=== PATIENT | female | born 1945 | race Hispanic/Latino ===

== ENCOUNTER 2020-02-16 00:26 | Inpatient (IN) | payer OTHER ==
[~2020-02-16] VITALS: Ht 149.9 cm; Wt 60.3 kg
[2020-02-16] MEDS ORDERED: ONDANSETRON HCL 4 MG/2 ML VIAL ONE (01:17)
[2020-02-16] MEDS ORDERED: ACETAMINOPHEN EXTRA STRENGTH 500 MG TABLET ONE (01:17)
[2020-02-16 01:36] LABS: BASOPHILS % (AUTO) 0.2 % (0.0-5.0); EOSINOPHILS % (AUTO) 0.5 % (0.0-8.0); HEMATOCRIT 39.2 % (36-48); LYMPHOCYTES % (AUTO) 4.1 % (21.0-51.0); MEAN CORPUSCULAR HGB CONC 34.2 g/dL (32.0-36.0); MEAN CORPUSCULAR VOLUME 87.9 fL (79-99); MONOCYTES % (AUTO) 5.5 % (3.0-13.0); NEUTROPHILS % (AUTO) 89.2 % (40.0-77.0); PLATELET COUNT (AUTO) 204 K/uL (130-400); RED BLOOD CELL COUNT(AUTO) 4.46 MIL/uL (4.00-5.50); RED CELL DISTRIBUTION WIDTH 13.9 % (11.0-15.5)
[2020-02-16 01:55] LABS: CARBON DIOXIDE 25 mmol/L (21-32); CHLORIDE 101 mmol/L (101-111); CREATININE 0.8 mg/dL (0.5-1.5); GLOMERULAR FILTR. RATE CALC 74 mL/min (>60); GLUCOSE,RANDOM 150 mg/dL (70-105); INR 0.92 (0.85-1.15); POTASSIUM 3.3 mmol/L (3.5-5.1); SODIUM SERUM 141 mmol/L (136-145); UREA NITROGEN, BLOOD 10 mg/dL (7-18)
[2020-02-16 02:06] LABS: ALANINE AMINOTRANSFERASE 15 U/L (12-78); ALBUMIN 4.3 g/dL (3.5-5.0); ASPARTATE AMINOTRANSFERASE 21 U/L (10-37); BILIRUBIN,TOTAL 0.6 mg/dL (0.2-1.0); CREATINE KINASE, TOTAL 46 U/L (21-232); MYOGLOBIN 23 ng/mL (10-92); TOTAL PROTEIN, SERUM 8.1 g/dL (6.0-8.3); TROPONIN I < 0.04 ng/mL (0.00-0.06)
[2020-02-16] MEDS ORDERED: LEVOFLOXACIN 500 MG/D5W 100 ML 100 ML ONE (02:13)
[2020-02-16 02:14] LABS: APPEARANCE,URINE Clear (CLEAR); BILIRUBIN,URINE Negative (NEGATIVE); COLOR,URINE Yellow (YELLOW); GLUCOSE, URINE (UA) Negative (NEGATIVE); KETONES,URINE Negative (NEGATIVE); LEUKOCYTE ESTERASE ,URINE Trace (NEGATIVE); NITRATE,URINE Negative (NEGATIVE); OCCULT BLOOD,URINE Negative (NEGATIVE); PH,URINE >=9.0 (5.0-8.0); PROTEIN,URINE Negative (NEGATIVE); UROBILINOGEN,URINE 0.2 mg/dL (0.2-1.0)
[2020-02-16] MEDS ORDERED: POTASSIUM CHLORIDE 20 MEQ ERTAB PO ONE (02:14)
[2020-02-16 02:24] LABS: BACTERIA,URINE Rare /HPF (None Seen); RBC,URINE 0-1 /HPF (0-1)
[2020-02-16] MEDS ORDERED: ACETAMINOPHEN 325 MG TAB PO PRN ×2 (04:45)
[2020-02-16] MEDS ORDERED: ONDANSETRON HCL 4 MG/2 ML VIAL IV PRN (04:45)
[2020-02-16] MEDS ORDERED: HYDRALAZINE HCL 20 MG/ML VIAL IV PRN (04:45)
[2020-02-16] MEDS ORDERED: LACTULOSE 20 GM/30 ML UDCUP PO PRN (04:45)
[2020-02-16 06:00] VITALS: BP 143/66
[2020-02-16] MEDS ORDERED: LOSA50TA64 PO (06:14)
[2020-02-16 07:34] VITALS: BP 144/58
[2020-02-16] MEDS: FAMOTIDINE 20MG TAB 20 MG TAB PO SCH ×2 (09:48→20:32)
[2020-02-16] MEDS: ENOXAPARIN SODIUM 40 MG/0.4 ML SYRINGE SQ SCH (09:49)
[2020-02-16 11:00] VITALS: BP 210/92
[2020-02-16 12:05] VITALS: BP 139/52
[2020-02-16 15:49] VITALS: BP 130/55
[2020-02-16 20:00] VITALS: BP 140/58
[2020-02-17] MEDS: SODIUM CHLORIDE 0.9% 1000ML 1,000 ML IV SCH ×4 (00:34→20:34)
[2020-02-17 00:39] VITALS: BP 130/51
[2020-02-17] MEDS: LEVOFLOXACIN 500 MG/D5W 100 ML 100 ML IV SCH (01:32)
[2020-02-17 03:48] VITALS: BP 136/79
[2020-02-17 04:09] LABS: HEMATOCRIT 35.3 % (36-48); MEAN CORPUSCULAR HGB CONC 33.1 g/dL (32.0-36.0); MEAN CORPUSCULAR VOLUME 90.5 fL (79-99); PLATELET COUNT (AUTO) 162 K/uL (130-400); RED CELL DISTRIBUTION WIDTH 14.4 % (11.0-15.5); WHITE BLOOD COUNT (AUTO) 7.9 K/uL (4.8-10.8)
[2020-02-17 04:34] LABS: ALBUMIN 3.1 g/dL (3.5-5.0); BILIRUBIN,TOTAL 0.6 mg/dL (0.2-1.0); CREATININE 0.7 mg/dL (0.5-1.5); POTASSIUM 3.6 mmol/L (3.5-5.1); TOTAL PROTEIN, SERUM 6.6 g/dL (6.0-8.3)
[2020-02-17 05:05] LABS: BAND NEUTROPHILS % (MANUAL) 2 % (0-2); BASOPHILS % (MANUAL) 2 % (0-2); LYMPHOCYTES % (MANUAL) 6 % (22-44); MAN.DIFF COMMENT-IMPRESSION MANUAL DIFFERENTIAL; MONOCYTES % (MANUAL) 8 % (2-9); SEGMENTED NEUTROPHILS % 82 % (40-70)
[2020-02-17 07:30] VITALS: BP 171/61
[2020-02-17] MEDS: FAMOTIDINE 20MG TAB 20 MG TAB PO SCH ×2 (09:14→19:09)
[2020-02-17] MEDS: ENOXAPARIN SODIUM 40 MG/0.4 ML SYRINGE SQ SCH (09:14)
[2020-02-17] MEDS: LOSARTAN 50 MG TABLET PO SCH (09:15)
[2020-02-17 12:00] VITALS: BP 163/73
--- NOTE | 2020-02-17 14:56 | NUR ---
DC CM met with pt discussed dc plans. Pt is independent prior to admission, lives at home with daughter and grandaughter. Denies any equipments/services. Feels safe to go back home, daughter able to assist with transportation and needs as necessary. DC plan to home once stable. Pt is a self pay, verbalized she sees Dr Roshan Mathur, given [facility], [facility] assisting. DC plan to home once stable. CM to cont to follow up. Addendum: 02/17/20 at 1457 by HARISH BELTRAN LVN CM Amended: Links added.
[2020-02-17] MEDS ORDERED: IOHEXOL-350 50ML VIAL IV ONE (17:10)
[2020-02-17 20:00] VITALS: BP 152/71
[2020-02-18] VITALS: BP 156/74
[2020-02-18] MEDS: LEVOFLOXACIN 500 MG/D5W 100 ML 100 ML IV SCH (01:47)
[2020-02-18] MEDS: SODIUM CHLORIDE 0.9% 1000ML 1,000 ML IV SCH ×3 (01:47→18:27)
[2020-02-18 03:59] LABS: BASOPHILS % (AUTO) 0.4 % (0.0-5.0); EOSINOPHILS % (AUTO) 1.8 % (0.0-8.0); HEMATOCRIT 35.5 % (36-48); LYMPHOCYTES % (AUTO) 11.5 % (21.0-51.0); MEAN CORPUSCULAR HEMOGLOBIN 29.8 pg (27.0-33.0); MEAN CORPUSCULAR HGB CONC 33.5 g/dL (32.0-36.0); MEAN CORPUSCULAR VOLUME 88.8 fL (79-99); MONOCYTES % (AUTO) 14.3 % (3.0-13.0); NEUTROPHILS % (AUTO) 71.6 % (40.0-77.0); PLATELET COUNT (AUTO) 185 K/uL (130-400); WHITE BLOOD COUNT (AUTO) 6.8 K/uL (4.8-10.8)
[2020-02-18 04:00] VITALS: BP 113/63
[2020-02-18 04:22] LABS: ALBUMIN 3.1 g/dL (3.5-5.0); BILIRUBIN,TOTAL 0.5 mg/dL (0.2-1.0); CREATININE 0.7 mg/dL (0.5-1.5); POTASSIUM 3.3 mmol/L (3.5-5.1); TOTAL PROTEIN, SERUM 6.8 g/dL (6.0-8.3)
[2020-02-18] MEDS ORDERED: POTASSIUM CHLORIDE 20MEQ/100ML 100 ML IV PRN (04:45)
[2020-02-18] MEDS ORDERED: POTASSIUM CHLORIDE 10% ELIXIR 20 MEQ/15 ML UDCUP PO PRN (04:45)
[2020-02-18] MEDS ORDERED: LIDOCAINE HCL-MPF 1% 2ML VIAL IV PRN (04:45)
[2020-02-18] MEDS: POTASSIUM CHLORIDE 20 MEQ ERTAB PO PRN ×3 (05:48→23:42)
[2020-02-18 08:00] VITALS: BP 160/81
[2020-02-18] MEDS: FAMOTIDINE 20MG TAB 20 MG TAB PO SCH ×2 (09:08→20:37)
[2020-02-18] MEDS: LOSARTAN 50 MG TABLET PO SCH (09:08)
[2020-02-18] MEDS: ENOXAPARIN SODIUM 40 MG/0.4 ML SYRINGE SQ SCH (09:09)
[2020-02-18 12:00] VITALS: BP 178/83
[2020-02-18 16:00] VITALS: BP 157/88
[2020-02-18 20:54] VITALS: BP 131/62
[2020-02-19 00:21] VITALS: BP 141/59
[2020-02-19] MEDS: LEVOFLOXACIN 500 MG/D5W 100 ML 100 ML IV SCH (01:47)
[2020-02-19] MEDS: SODIUM CHLORIDE 0.9% 1000ML 1,000 ML IV SCH (01:47)
[2020-02-19 04:01] VITALS: BP 172/75
[2020-02-19 05:35] LABS: BASOPHILS % (AUTO) 0.5 % (0.0-5.0); EOSINOPHILS % (AUTO) 2.3 % (0.0-8.0); HEMATOCRIT 36.4 % (36-48); LYMPHOCYTES % (AUTO) 14.6 % (21.0-51.0); MEAN CORPUSCULAR HEMOGLOBIN 29.6 pg (27.0-33.0); MEAN CORPUSCULAR HGB CONC 32.4 g/dL (32.0-36.0); MEAN CORPUSCULAR VOLUME 91.2 fL (79-99); MONOCYTES % (AUTO) 10.4 % (3.0-13.0); NEUTROPHILS % (AUTO) 71.7 % (40.0-77.0); PLATELET COUNT (AUTO) 203 K/uL (130-400); RED BLOOD CELL COUNT(AUTO) 3.99 MIL/uL (4.00-5.50); RED CELL DISTRIBUTION WIDTH 14.1 % (11.0-15.5)
[2020-02-19 06:05] LABS: ALBUMIN 3.1 g/dL (3.5-5.0); BILIRUBIN,TOTAL 0.4 mg/dL (0.2-1.0); CREATININE 0.6 mg/dL (0.5-1.5); POTASSIUM 4.2 mmol/L (3.5-5.1); TOTAL PROTEIN, SERUM 6.9 g/dL (6.0-8.3)
[2020-02-19 07:27] VITALS: BP 165/79
[2020-02-19] MEDS ORDERED: LOSARTAN 100 MG TABLET PO SCH (09:00)
[2020-02-19] MEDS: ENOXAPARIN SODIUM 40 MG/0.4 ML SYRINGE SQ SCH (10:19)
[2020-02-19] MEDS: FAMOTIDINE 20MG TAB 20 MG TAB PO SCH (10:19)
[2020-02-19] MEDS ORDERED: LEVO500T89 PO (11:17)
[2020-02-19 11:24] VITALS: BP 183/82
[2020-02-19 12:55] VITALS: BP 136/64
--- NOTE | 2020-02-19 15:37 | NUR ---
Please refer to medication reconciliation sheet for full details on, medications, doses, and frequency of new medications. Discontinued and, continued home medications., Levofloxacin 500 mg daily for 5 days. DISCHARGE FOLLOW UP: Follow-up with pulmonology Dr. Cohen in 2 to 3 weeks. Call to set up an appointment at phone:[phone] address; [address] [place] [address], [address] Follow-up with primary care provider within 2 to 3 weeks, the list of, primary care provider in area was given to you at discharge. If you are having fevers greater than 101.0, difficulty urinating, Call your primary doctor could mean you have an infection. Finish full course of antibiotic treatment to prevent super infection. IV OUT, INTACT, NO BLEEDING, NO SWELLING, AAOX3, RX GIVEN TO PATIENT. TELE PACK REMOVED BY [employer]. DENIES ANY COUGH NOR SOB, OR DIFFICULTY URINATING, DENIES ANY BURNING UPON URINATION. Addendum: 02/19/20 at 1549 by ARON REINOSO RN RN PT WAS ALSO EDUCATED USING TEACH BACK TECHNIQUE RE; S/S TO WATCH FOR AND WHEN TO CALL MD AND ANTIBIOTIC THERAPY.
== END 2020-02-19 15:45 | disposition home or self-care (01) | DRG 871 ==
LOC: EDH 00:26 → EDHIP 00:27 → 3BH 05:10
PROVIDERS: ADMIT Internal Medicine; ATTEND Internal Medicine
DX: A41.9 Sepsis, unspecified organism (principal); J18.9 Pneumonia, unspecified organism; N39.0 Urinary tract infection, site not specified; E87.6 Hypokalemia; E66.9 Obesity, unspecified; Z68.26 Body mass index [BMI] 26.0-26.9, adult; I10 Essential (primary) hypertension; K57.90 Diverticulosis of intestine, part unspecified, without perforation or abscess without bleeding; Z88.0 Allergy status to penicillin
CPT/HCPCS: 36415; 71045; 71260; 74176; 80053; 81001; 82550; 82728; 83605; 83874; 83880; 84145; 84484; 85025; 85378; 85610; 85730; 86140; 87040; 87088; 87449; 87804; 93005; G0378; J0360; J1650; J1956; J2405; J7030; Q9967

== ENCOUNTER 2021-01-08 19:31 | Emergency (ER) | payer MEDICAID, OTHER ==
[~2021-01-08 19:31] MED LIST: LEVO500T89 PO; LOSA50TA64 PO
[2021-01-08] MEDS ORDERED: ONDANSETRON HCL 4 MG/2 ML VIAL ONE (20:31)
[2021-01-08] MEDS ORDERED: METOCLOPRAMIDE 10 MG/2 ML VIAL ONE (20:31)
[2021-01-08] MEDS ORDERED: SODIUM CHLORIDE 0.9% 1000ML 1,000 ML IV ONE (20:32)
[2021-01-08 20:43] LABS: APPEARANCE,URINE Clear (CLEAR); BILIRUBIN,URINE Negative (NEGATIVE); COLOR,URINE Yellow (YELLOW); GLUCOSE, URINE (UA) Negative (NEGATIVE); KETONES,URINE Negative (NEGATIVE); LEUKOCYTE ESTERASE ,URINE Trace (NEGATIVE); NITRATE,URINE Negative (NEGATIVE); OCCULT BLOOD,URINE Negative (NEGATIVE); PH,URINE 5.5 (5.0-8.0); PROTEIN,URINE Negative (NEGATIVE); UROBILINOGEN,URINE 0.2 mg/dL (0.2-1.0)
[2021-01-08 20:45] LABS: BASOPHILS % (AUTO) 0.3 % (0.0-5.0); EOSINOPHILS % (AUTO) 1.5 % (0.0-8.0); HEMATOCRIT 40.5 % (36-48); LYMPHOCYTES % (AUTO) 12.7 % (21.0-51.0); MEAN CORPUSCULAR HEMOGLOBIN 30.2 pg (27.0-33.0); MEAN CORPUSCULAR HGB CONC 34.1 g/dL (32.0-36.0); MEAN CORPUSCULAR VOLUME 88.6 fL (79-99); MONOCYTES % (AUTO) 8.2 % (3.0-13.0); NEUTROPHILS % (AUTO) 76.9 % (40.0-77.0); PLATELET COUNT (AUTO) 283 K/uL (130-400); RED BLOOD CELL COUNT(AUTO) 4.57 MIL/uL (4.00-5.50); RED CELL DISTRIBUTION WIDTH 13.8 % (11.0-15.5); WHITE BLOOD COUNT (AUTO) 9.5 K/uL (4.8-10.8)
[2021-01-08 20:50] LABS: CARBON DIOXIDE 28 mmol/L (21-32); CHLORIDE 101 mmol/L (101-111); CREATININE 0.7 mg/dL (0.5-1.5); GLOMERULAR FILTR. RATE CALC 86 mL/min (>60); GLUCOSE,RANDOM 92 mg/dL (70-105); POTASSIUM 3.7 mmol/L (3.5-5.1); SODIUM SERUM 139 mmol/L (136-145); UREA NITROGEN, BLOOD 8 mg/dL (7-18)
[2021-01-08 20:52] LABS: INR 1.03 (0.85-1.15); PROTHROMBIN TIME 11.2 SEC (9.6-11.6)
[2021-01-08 20:53] LABS: PARTIAL THROMBOPLASTIN TIME 22.4 SEC (26.3-35.5)
[2021-01-08 20:54] LABS: ALANINE AMINOTRANSFERASE 24 U/L (12-78); ALBUMIN 4.1 g/dL (3.5-5.0); ASPARTATE AMINOTRANSFERASE 29 U/L (10-37); BILIRUBIN,TOTAL 0.7 mg/dL (0.2-1.0); CREATINE KINASE, TOTAL 64 U/L (21-232); TOTAL PROTEIN, SERUM 8.2 g/dL (6.0-8.3)
[2021-01-08 20:55] LABS: LIPASE < 50 U/L (114-286)
[2021-01-08 21:02] LABS: BACTERIA,URINE Rare /HPF (None Seen); RBC,URINE 0-1 /HPF (0-1); SQUAMOUS EPITHELIAL CELL,UR Few /HPF (0-2)
[2021-01-08] MEDS ORDERED: LEVOFLOXACIN 750 MG/D5W 150 ML 150 ML ONE (21:41)
== END 2021-01-08 23:18 | disposition home or self-care (01) ==
LOC: EDH 19:31
DX: E86.0 Dehydration (principal); R19.7 Diarrhea, unspecified; R11.2 Nausea with vomiting, unspecified; R10.84 Generalized abdominal pain; Z20.822 Contact with and (suspected) exposure to COVID-19; I10 Essential (primary) hypertension; Z88.0 Allergy status to penicillin
CPT/HCPCS: 36415; 80053; 81001; 82270; 82550; 83605; 83690; 84484; 85025; 85610; 85730; 87040 ×2; 87426; 93005; 96361; 96365; 96375; 99284; J1956; J2405; J2765; J7030; U0003

== ENCOUNTER 2021-02-20 15:46 | Emergency (ER) | payer MEDICAID, OTHER ==
[2021-02-20 16:43] LABS: BASOPHILS % (AUTO) 0.4 % (0.0-5.0); EOSINOPHILS % (AUTO) 9.9 % (0.0-8.0); HEMATOCRIT 40.1 % (36-48); LYMPHOCYTES % (AUTO) 13.1 % (21.0-51.0); MEAN CORPUSCULAR HEMOGLOBIN 28.5 pg (27.0-33.0); MEAN CORPUSCULAR HGB CONC 32.7 g/dL (32.0-36.0); MEAN CORPUSCULAR VOLUME 87.2 fL (79-99); MONOCYTES % (AUTO) 9.9 % (3.0-13.0); PLATELET COUNT (AUTO) 267 K/uL (130-400); RED CELL DISTRIBUTION WIDTH 13.5 % (11.0-15.5); WHITE BLOOD COUNT (AUTO) 7.2 K/uL (4.8-10.8)
[2021-02-20 17:00] LABS: ALBUMIN 3.9 g/dL (3.5-5.0); BILIRUBIN,TOTAL 0.5 mg/dL (0.2-1.0); CREATININE 0.6 mg/dL (0.5-1.5); POTASSIUM 3.6 mmol/L (3.5-5.1); TOTAL PROTEIN, SERUM 7.9 g/dL (6.0-8.3)
[2021-02-20 17:40] LABS: APPEARANCE,URINE Clear (CLEAR); BILIRUBIN,URINE Negative (NEGATIVE); COLOR,URINE Yellow (YELLOW); GLUCOSE, URINE (UA) Negative (NEGATIVE); KETONES,URINE Negative (NEGATIVE); LEUKOCYTE ESTERASE ,URINE Trace (NEGATIVE); NITRATE,URINE Negative (NEGATIVE); OCCULT BLOOD,URINE Negative (NEGATIVE); PROTEIN,URINE Negative (NEGATIVE)
[2021-02-20 18:04] LABS: BACTERIA,URINE Rare /HPF (None Seen); RBC,URINE 0-1 /HPF (0-1); SQUAMOUS EPITHELIAL CELL,UR Few /HPF (0-2); WBC,URINE 0-1 /HPF (0-1)
[2021-02-20] MEDS ORDERED: ONDANSETRON 4MG INJ ONE (21:53)
[2021-02-20] MEDS ORDERED: 0.9% NACL 500ML IV.SOLN 500 ML IV ONE (21:54)
[2021-02-20] MEDS ORDERED: FAMOTIDINE 20MG VIAL IV ONE (21:54)
== END 2021-02-20 22:23 | disposition home or self-care (01) ==
LOC: EDH 15:46
DX: E86.9 Volume depletion, unspecified (principal); R53.81 Other malaise; I10 Essential (primary) hypertension; Z88.0 Allergy status to penicillin
CPT/HCPCS: 36415; 74176; 80053; 81001; 83605; 85025; 87040 ×2; 96374; 96375; 99285; J2405; J7040; S0028; J3490

== ENCOUNTER 2021-04-04 20:10 | Emergency (ER) | payer OTHER ==
[~2021-04-04] VITALS: Ht 142.2 cm; Wt 59.9 kg
[2021-04-04 20:34] VITALS: BP 166/135
[2021-04-04 20:35] VITALS: BP 181/81
[2021-04-04 20:45] LABS: BASOPHILS % (AUTO) 0.4 % (0.0-5.0); EOSINOPHILS % (AUTO) 1.7 % (0.0-8.0); HEMATOCRIT 38.8 % (36-48); LYMPHOCYTES % (AUTO) 15.6 % (21.0-51.0); MEAN CORPUSCULAR HEMOGLOBIN 28.7 pg (27.0-33.0); MEAN CORPUSCULAR HGB CONC 33.2 g/dL (32.0-36.0); MEAN CORPUSCULAR VOLUME 86.2 fL (79-99); MONOCYTES % (AUTO) 8.6 % (3.0-13.0); PLATELET COUNT (AUTO) 228 K/uL (130-400); RED CELL DISTRIBUTION WIDTH 13.8 % (11.0-15.5); WHITE BLOOD COUNT (AUTO) 7.1 K/uL (4.8-10.8)
[2021-04-04] MEDS ORDERED: NIFEDIPINE 10 MG CAP PO SCH (20:45)
[2021-04-04 20:51] LABS: CARBON DIOXIDE 28 mmol/L (21-32); CHLORIDE 101 mmol/L (101-111); CREATININE 0.7 mg/dL (0.5-1.5); GLOMERULAR FILTR. RATE CALC 86 mL/min (>60); GLUCOSE,RANDOM 116 mg/dL (70-105); POTASSIUM 3.3 mmol/L (3.5-5.1); SODIUM SERUM 137 mmol/L (136-145); UREA NITROGEN, BLOOD 9 mg/dL (7-18)
[2021-04-04 20:53] LABS: APPEARANCE,URINE Clear (CLEAR); COLOR,URINE Yellow (YELLOW); PH,URINE 7.5 (5.0-8.0); PROTEIN,URINE Negative (NEGATIVE)
[2021-04-04] MEDS ORDERED: LOSA50TA64 PO (20:53)
[2021-04-04] MEDS ORDERED: AMLO2.5T4 PO (20:53)
[2021-04-04 20:54] LABS: BILIRUBIN,URINE Negative (NEGATIVE); GLUCOSE, URINE (UA) Negative (NEGATIVE); KETONES,URINE Negative (NEGATIVE); LEUKOCYTE ESTERASE ,URINE Trace (NEGATIVE); NITRATE,URINE Negative (NEGATIVE); OCCULT BLOOD,URINE Negative (NEGATIVE); UROBILINOGEN,URINE 0.2 mg/dL (0.2-1.0)
[2021-04-04 20:55] LABS: ALANINE AMINOTRANSFERASE 22 U/L (12-78); ALBUMIN 3.9 g/dL (3.5-5.0); ASPARTATE AMINOTRANSFERASE 18 U/L (10-37); BILIRUBIN,TOTAL 0.3 mg/dL (0.2-1.0)
[2021-04-04 20:56] LABS: CRP QUANTITATIVE < 2.00 mg/L (0.00-9.0)
[2021-04-04 21:04] LABS: BACTERIA,URINE Rare /HPF (None Seen); RBC,URINE 0-1 /HPF (0-1); SQUAMOUS EPITHELIAL CELL,UR Few /HPF (0-2); WBC,URINE 0-1 /HPF (0-1)
[2021-04-04 21:06] LABS: B-TYPE NATRIURETIC PEPTIDE 62 pg/mL (0-100)
[2021-04-04 21:27] VITALS: BP 111/52
== END 2021-04-04 21:57 | disposition home or self-care (01) ==
LOC: EDH 20:10
DX: I10 Essential (primary) hypertension (principal)
CPT/HCPCS: 36415; 71045; 80053; 81001; 83880; 84484; 85025; 86140; 93005

== ENCOUNTER 2021-04-24 13:29 | Observation (INO) | payer OTHER ==
[~2021-04-24] VITALS: Ht 149.9 cm; Wt 56.4 kg
[~2021-04-24 13:29] MED LIST changes: +AMLO2.5T4 PO
[2021-04-24 13:41] VITALS: BP 173/81
[2021-04-24] MEDS ORDERED: MORPHINE 2 MG SYG IVP ONE (14:00)
[2021-04-24 14:19] LABS: APPEARANCE,URINE Clear (CLEAR); BILIRUBIN,URINE Negative (NEGATIVE); COLOR,URINE Yellow (YELLOW); GLUCOSE, URINE (UA) Negative (NEGATIVE); KETONES,URINE Negative (NEGATIVE); LEUKOCYTE ESTERASE ,URINE Trace (NEGATIVE); NITRATE,URINE Negative (NEGATIVE); OCCULT BLOOD,URINE Small (NEGATIVE); PH,URINE 8.5 (5.0-8.0); PROTEIN,URINE Negative (NEGATIVE)
[2021-04-24 14:20] LABS: BASOPHILS % (AUTO) 0.3 % (0.0-5.0); EOSINOPHILS % (AUTO) 0.7 % (0.0-8.0); HEMATOCRIT 36.7 % (36-48); LYMPHOCYTES % (AUTO) 6.6 % (21.0-51.0); MEAN CORPUSCULAR HEMOGLOBIN 29.4 pg (27.0-33.0); MEAN CORPUSCULAR HGB CONC 33.5 g/dL (32.0-36.0); MEAN CORPUSCULAR VOLUME 87.6 fL (79-99); MONOCYTES % (AUTO) 5.7 % (3.0-13.0); PLATELET COUNT (AUTO) 221 K/uL (130-400); RED BLOOD CELL COUNT(AUTO) 4.19 MIL/uL (4.00-5.50); RED CELL DISTRIBUTION WIDTH 13.8 % (11.0-15.5)
[2021-04-24 14:30] LABS: CARBON DIOXIDE 26 mmol/L (21-32); CHLORIDE 101 mmol/L (101-111); CREATININE 0.5 mg/dL (0.5-1.5); GLOMERULAR FILTR. RATE CALC 127 mL/min (>60); GLUCOSE,RANDOM 100 mg/dL (70-105); POTASSIUM 3.2 mmol/L (3.5-5.1); SODIUM SERUM 137 mmol/L (136-145); UREA NITROGEN, BLOOD 8 mg/dL (7-18)
[2021-04-24 14:35] LABS: ALANINE AMINOTRANSFERASE 16 U/L (12-78); ALBUMIN 3.5 g/dL (3.5-5.0); ASPARTATE AMINOTRANSFERASE 14 U/L (10-37); BILIRUBIN,TOTAL 0.3 mg/dL (0.2-1.0); CREATINE KINASE, TOTAL 38 U/L (21-232); TOTAL PROTEIN, SERUM 7.1 g/dL (6.0-8.3)
[2021-04-24 14:36] LABS: LIPASE < 50 U/L (114-286)
[2021-04-24 14:41] LABS: BACTERIA,URINE Rare /HPF (None Seen); MUCUS,URINE Rare LPF (None Seen); SQUAMOUS EPITHELIAL CELL,UR Rare /HPF (0-2)
[2021-04-24] MEDS ORDERED: MORPHINE 2 MG SYG ONE (15:05)
[2021-04-24] MEDS ORDERED: MORPHINE 2 MG SYG IVP PRN (17:30)
[2021-04-24] MEDS ORDERED: KCL 20 MEQ ERTAB PO PRN (17:30)
[2021-04-24] MEDS ORDERED: DICYCLOMINE HCL 20 MG TAB PO PRN (17:30)
[2021-04-24] MEDS ORDERED: LUBIPROSTONE 24 MCG CAP PO PRN (17:30)
[2021-04-24] MEDS ORDERED: LIDOCAINE HCL-MPF 1% 2ML VIAL IV PRN (17:30)
[2021-04-24] MEDS ORDERED: ACETAMINOPHEN 325 MG TAB PO PRN (17:30)
[2021-04-24] MEDS ORDERED: POTASSIUM CHLORIDE 10% ELIXIR 20 MEQ/15 ML UDCUP PO PRN (17:30)
[2021-04-24] MEDS ORDERED: POTASSIUM CHLORIDE 20MEQ/100ML 100 ML IV PRN (17:30)
[2021-04-24] MEDS: 0.9%NACL 1000ML 1,000 ML IV SCH (17:39)
[2021-04-24] MEDS: LUBIPROSTONE 24 MCG CAP PO SCH (19:32)
[2021-04-24] MEDS ORDERED: KCL 20 MEQ ERTAB PO ONE (20:00)
[2021-04-24] MEDS ORDERED: LACTULOSE 20 GM/30 ML UDCUP PO ONE (20:00)
[2021-04-24] MEDS ORDERED: KETOROLAC 30MG VIAL (30MG/ML) IM PRN (20:00)
[2021-04-24] MEDS ORDERED: BISACODYL 10 MG SUPP.RECT RC ONE (20:00)
[2021-04-24] MEDS ORDERED: LOSARTAN 50 MG TABLET PO SCH (20:30)
[2021-04-24] MEDS ORDERED: LABETALOL 20MG SYG IV PRN (20:30)
[2021-04-24] MEDS: DOCUSATE SODIUM 100 MG CAP PO SCH (21:19)
[2021-04-24] MEDS: FAMOTIDINE 20MG TAB PO SCH (21:20)
[2021-04-24] MEDS: METOPROLOL TARTRATE 25 MG TAB PO SCH (21:20)
[2021-04-24 23:10] VITALS: BP 145/73
[2021-04-24 23:20] VITALS: BP 147/68
[2021-04-25 04:00] VITALS: BP 132/65
[2021-04-25 05:04] LABS: BASOPHILS % (AUTO) 0.3 % (0.0-5.0); EOSINOPHILS % (AUTO) 0.5 % (0.0-8.0); HEMATOCRIT 35.6 % (36-48); LYMPHOCYTES % (AUTO) 9.6 % (21.0-51.0); MEAN CORPUSCULAR HEMOGLOBIN 29.1 pg (27.0-33.0); MEAN CORPUSCULAR HGB CONC 33.1 g/dL (32.0-36.0); MEAN CORPUSCULAR VOLUME 87.7 fL (79-99); MONOCYTES % (AUTO) 7.2 % (3.0-13.0); NEUTROPHILS % (AUTO) 81.9 % (40.0-77.0); PLATELET COUNT (AUTO) 223 K/uL (130-400); RED BLOOD CELL COUNT(AUTO) 4.06 MIL/uL (4.00-5.50); WHITE BLOOD COUNT (AUTO) 9.4 K/uL (4.8-10.8)
[2021-04-25 05:53] LABS: ALBUMIN 3.4 g/dL (3.5-5.0); BILIRUBIN,TOTAL 0.4 mg/dL (0.2-1.0); CREATININE 0.7 mg/dL (0.5-1.5); MAGNESIUM 1.9 mg/dL (1.80-2.40); PHOSPHORUS 3.9 mg/dL (2.5-4.9); POTASSIUM 3.2 mmol/L (3.5-5.1); THYROID STIMULATING HORMONE 1.91 uIU/mL (0.36-3.74); TOTAL PROTEIN, SERUM 6.8 g/dL (6.0-8.3)
[2021-04-25 07:30] VITALS: BP 183/70
[2021-04-25] MEDS: LUBIPROSTONE 24 MCG CAP PO SCH (08:27)
[2021-04-25] MEDS: METOPROLOL TARTRATE 25 MG TAB PO SCH (08:27)
[2021-04-25] MEDS: FAMOTIDINE 20MG TAB PO SCH (08:27)
[2021-04-25] MEDS: DOCUSATE SODIUM 100 MG CAP PO SCH (08:27)
[2021-04-25] MEDS ORDERED: ENOXAPARIN SODIUM 30 MG/0.3 ML SQ SCH (09:00)
[2021-04-25] MEDS ORDERED: LOSARTAN 50 MG TABLET PO SCH (09:00)
[2021-04-25 11:00] VITALS: BP 146/62
[2021-04-25] MEDS: 0.9%NACL 1000ML 1,000 ML IV SCH (13:04)
[2021-04-25] MEDS ORDERED: DOCU-275 PO (13:17)
== END 2021-04-25 16:00 | disposition home or self-care (01) ==
LOC: EDH 13:29 → EDHIP 13:30 → 3CH 22:50
PROVIDERS: ADMIT Internal Medicine; ATTEND Internal Medicine
DX: K56.41 Fecal impaction (principal); I10 Essential (primary) hypertension; K21.9 Gastro-esophageal reflux disease without esophagitis; D72.829 Elevated white blood cell count, unspecified; E87.6 Hypokalemia; K80.20 Calculus of gallbladder without cholecystitis without obstruction; K82.1 Hydrops of gallbladder; Z88.0 Allergy status to penicillin; Z79.899 Other long term (current) drug therapy
CPT/HCPCS: 36415 ×2; 74176; 76705; 80053 ×2; 81001; 82550; 83690; 83735; 84100; 84443; 84484; 85025 ×2; 87040 ×2; 93005; 96361 ×2; 96372; 96374; 99285; G0378 ×23; J1650

== ENCOUNTER 2021-06-14 18:18 | Emergency (ER) | payer OTHER ==
[~2021-06-14] VITALS: Ht 152.4 cm; Wt 65.8 kg
[~2021-06-14 18:18] MED LIST changes: +DOCU-270 PO; -LEVO500T89 PO
[2021-06-14] MEDS ORDERED: KETOROLAC 30MG VIAL (30MG/ML) IM STA (19:53)
[2021-06-14] MEDS ORDERED: CEFTRIAXONE 1G VIAL IVP STA (19:59)
[2021-06-14 20:00] VITALS: BP 135/48
[2021-06-14] MEDS ORDERED: ONDANSETRON 4MG TABLET PO ONE (20:00)
[2021-06-14 20:34] LABS: BASOPHILS % (AUTO) 0.5 % (0.0-5.0); EOSINOPHILS % (AUTO) 1.8 % (0.0-8.0); HEMATOCRIT 38.8 % (36-48); LYMPHOCYTES % (AUTO) 11.4 % (21.0-51.0); MEAN CORPUSCULAR VOLUME 88.2 fL (79-99); MONOCYTES % (AUTO) 6.5 % (3.0-13.0); NEUTROPHILS % (AUTO) 78.9 % (40.0-77.0); PLATELET COUNT (AUTO) 301 K/uL (130-400); RED CELL DISTRIBUTION WIDTH 13.9 % (11.0-15.5)
[2021-06-14 20:51] LABS: CREATININE 0.7 mg/dL (0.5-1.5); POTASSIUM 3.6 mmol/L (3.5-5.1)
[2021-06-14 20:55] LABS: ALBUMIN 3.8 g/dL (3.5-5.0); BILIRUBIN,TOTAL 0.5 mg/dL (0.2-1.0); TOTAL PROTEIN, SERUM 8.1 g/dL (6.0-8.3)
[2021-06-14] MEDS ORDERED: ONDANSETRON 4MG TABLET ONE (21:13)
[2021-06-14] MEDS ORDERED: KETOROLAC 30MG VIAL (30MG/ML) ONE (21:13)
[2021-06-14 21:33] LABS: APPEARANCE,URINE Clear (CLEAR); BILIRUBIN,URINE Negative (NEGATIVE); COLOR,URINE Yellow (YELLOW); GLUCOSE, URINE (UA) Negative (NEGATIVE); KETONES,URINE Negative (NEGATIVE); LEUKOCYTE ESTERASE ,URINE Trace (NEGATIVE); NITRATE,URINE Negative (NEGATIVE); OCCULT BLOOD,URINE Negative (NEGATIVE); PROTEIN,URINE Negative (NEGATIVE)
[2021-06-14 21:52] LABS: BACTERIA,URINE Rare /HPF (None Seen); MUCUS,URINE None Seen LPF (None Seen); RBC,URINE 0-1 /HPF (0-1); SQUAMOUS EPITHELIAL CELL,UR Rare /HPF (0-2)
[2021-06-14] MEDS ORDERED: ONDA4TAB4 PO (22:00)
[2021-06-14] MEDS ORDERED: IBUP-2088 PO (22:00)
[2021-06-14 22:35] VITALS: BP 128/47
== END 2021-06-14 22:44 | disposition home or self-care (01) ==
LOC: EDH 18:18
DX: R10.9 Unspecified abdominal pain (principal); R11.2 Nausea with vomiting, unspecified; R19.7 Diarrhea, unspecified; R42 Dizziness and giddiness; I10 Essential (primary) hypertension; K21.9 Gastro-esophageal reflux disease without esophagitis; Z79.1 Long term (current) use of non-steroidal anti-inflammatories (NSAID); Z79.899 Other long term (current) drug therapy; Z90.49 Acquired absence of other specified parts of digestive tract; Z88.0 Allergy status to penicillin
CPT/HCPCS: 36415; 80053; 81001; 82150; 83690; 85025; 96372; 99283; J1885; Q0162